=== PATIENT | male | born 1940 | race Caucasian/White ===

== ENCOUNTER → 2023-05-09 14:59 | Outpatient (BNVA) | payer OTHER, SELFPAY | PROVIDERS: PCP Internal Medicine; Visit Provider Internal Medicine ==

== ENCOUNTER 2023-06-22 06:05 | Outpatient (REF) | payer OTHER, SELFPAY ==
--- NOTE | ~2023-06-22 | FL_ITS ---
EXAMINATION: XR FLUOROSCOPY WITH IMAGES CLINICAL INFORMATION: Spondylosis without myelopathy or radiculopathy, lumbar region. COMPARISON: None available. TECHNIQUE: Fluoroscopy Supervised By: Dr. Nj Chaney. Fluoroscopy Time: 0.1 minute. Cumulative Dose: 2.06 mGy. DAP: 0.345 Gy-cm2. Images: 1. FINDINGS: There is a single image of the lumbar spine with needle positioned adjacent to L3-L4, L4-L5 and L5-S1 facet joints with contrast opacifying the soft tissues. On the visualized images, no aggressive lytic or sclerotic process seen. FL/FL guidance in treatment room IMPRESSION: Fluoroscopy guidance was provided to referring physician for pain management.
== END 2023-06-22 06:06 | disposition home or self-care (01) ==
LOC: CF 06:05
PROVIDERS: Visit Provider Internal Medicine
DX: M47.816 Spondylosis without myelopathy or radiculopathy, lumbar region (principal)
CPT/HCPCS: 64493; 64494

== ENCOUNTER 2023-06-22 10:17 | Outpatient (AMB) | payer OTHER, SELFPAY ==
[2023-06-22 10:33] VITALS: BP 130/68; PULSE 65; RESP 16; O2SAT 96; BMI 25.5
--- NOTE | 2023-06-22 10:33 | A.OFFVIS_ITS ---
Intake Vital Signs 06/22/23 10:33 06/22/23 11:03 Height 5 ft 11 in 5 ft 11 in Weight 183 lb 183 lb BMI 25.5 25.5 BP 130/68 138/62 Blood Pressure Location Lt brachial Lt brachial Position Sitting Sitting Respiration 16 16 Pulse 65 56 Pulse Source Pulse Oximeter Pulse Oximeter Pulse Oximetry (%) 96 98 Oxygen Delivery Method Room Air Room Air Comment Pre-op post-op Intake Visit Reasons: Right Dx L3-L4-DR-L5 MBB Allergies No Known Allergies Allergy (Verified 06/22/23 10:33) HPI Right Dx L3-L4-DR-L5 MBB HPI Details Patient presents for scheduled procedure. Denies any recent cough, cold, infection, fever or other significant changes in medical history since last office visit. [facility] Medical History (Updated 05/09/23 @ 16:07 by Nj Chaney MD) BPH (benign prostatic hyperplasia) CAD (coronary artery disease) Cholelithiasis GERD (gastroesophageal reflux disease) Hearing loss Heart murmur History of colonic polyps HTN (hypertension) Hyperlipidemia NITESH (iron deficiency anemia) Microalbuminuria Type II diabetes mellitus with renal manifestations Physical Exam Vital Signs: Last Vital Signs Pulse 56 06/22/23 11:03 Resp 16 06/22/23 11:03 BP 138/62 06/22/23 11:03 Pulse Ox 98 06/22/23 11:03 Oxygen Delivery Method Room Air 06/22/23 11:03 BMI result Body Mass Index 25.5 Office Procedures Lumbar/Sacral Facet Inj Details: Lumbar Medial Branch Block, right L3, L4 medial branches and L5 Dorsal Ramus (2 levels, 3 nerves) After obtaining written consent, pre-procedure blood pressure and pulse were recorded and are in the nursing record for review. The patient was placed in a prone position. The respective lumbosacral area was prepped with chloraprep and draped in sterile fashion. The skin over the target medial branch nerves was anesthetized with 0.5% lidocaine. A 22 gauge 3.5 inch needle was inserted into the target medial branch nerve under fluoroscopic guidance. No paresthesias were elicited with needle placement and aspiration was negative for blood and CSF. Next, 0.2cc of omnipaque 180 was injected to verify positioning. Next 0.5 ml 0.5% ropivicaine was injected (0.5cc total per level). The identical procedure was performed at the remaining levels. The skin was cleansed and a sterile bandage was applied. Following the procedure the patient's vital signs were stable. The patient tolerated the procedure well and no complications were encountered. Following the procedure the patient's vital signs were stable. The patient was discharged home in good condition with post-procedural instructions. Time Out: Immediately prior to the procedure, the following was verbally confirmed that there is a signed consent form and that the correct patient, planned procedure, site and side are consistent with documentation and that necessary equipment and/or blood products are available prior to the start of the case. Complications: none EBL: <5 cc 74871 - second level, with Fluoroscopy Procedure code (CPT) selection complete Assessment & Plan Assessment & Plan (1) Lumbar spondylosis: Code(s): M47.816 - Spondylosis without myelopathy or radiculopathy, lumbar region Plan Patient is status post right L3, L4 medial branches and L5 dorsal ramus d iagnostic nerve block. Patient tolerated procedure well and was discharged home in stable condition with discharge instructions. All questions were answered. We will follow-up via telephone or in clinic to assess response to therapy. A follow-up appointment was made during today's visit. Orders: Orders 2 FL guidance in treatment room Today M47.816 - Spondylosis without myelopathy or radiculopathy, lumbar region Coding Level of Care Code Procedure Only Diagnoses Lumbar spondylosis M47.816 CPT Codes Facet Injection-Lumbar/Sacral - CPT: 67269 - second level, with Fluoroscopy ([id number])
[2023-06-22 11:03] VITALS: BP 138/62; PULSE 56; RESP 16; O2SAT 98; BMI 25.5
== END 2023-06-22 11:00 | disposition home or self-care (01) ==
PROVIDERS: PCP Internal Medicine; Visit Provider Internal Medicine
DX: M47.816 Spondylosis without myelopathy or radiculopathy, lumbar region (principal)
CPT/HCPCS: 64493; 64494

== ENCOUNTER 2023-10-03 14:03 | Outpatient (AMB) | payer OTHER, SELFPAY ==
[2023-10-03 14:08] VITALS: PULSE 64; RESP 12; O2SAT 96; BMI 25.5
--- NOTE | 2023-10-03 14:08 | MHC.OFFVIS ---
Intake Vital Signs 10/03/23 14:08 Height 5 ft 11 in Weight 183 lb BMI 25.5 Blood Pressure Location Lt brachial Position Sitting Respiration 12 Pulse 64 Pulse Source Pulse Oximeter Pulse Oximetry (%) 96 Oxygen Delivery Method Room Air Intake Visit Reasons: post procedure/lvm Allergies No Known Allergies Allergy (Verified 10/03/23 14:09) Medication List - Last Reconciled 10/03/23 by Ping Russ LPN amlodipine 10 mg PO DAILY diclofenac sodium 1% 1 g topical PRN dulaglutide (Trulicity) 0.75 mg subcut QWEEK ferrous sulfate (FeroSul) 325 mg PO DAILY finasteride 5 mg PO DAILY glipizide 10 mg PO BID metformin 1,000 mg PO BID metoprolol succinate ER 50 mg PO DAILY omeprazole 20 mg PO DAILY rosuvastatin 20 mg PO DAILY tamsulosin 0.4 mg PO DAILY tramadol 50 mg PO Q6H PRN HPI post procedure/lvm HPI Details 83-year-old male who presents today to the office for a post procedure check in. The patient reports 80% relief following the procedure for about 3-4 days. He reports back pain. He missed the call to schedule follow-up appointment after last procedure. Past procedure: 06/22/23: Lumbar Medial Branch Block, right L3, L4 medial branches and L5 Dorsal Ramus (2 levels, 3 nerves): 80% relief for 3-4 days. [facility] Medical History (Updated 05/09/23 @ 16:07 by Nj Chaney MD) Hearing loss History of colonic polyps CAD (coronary artery disease) GERD (gastroesophageal reflux disease) HTN (hypertension) BPH (benign prostatic hyperplasia) Hyperlipidemia NITESH (iron deficiency anemia) Type II diabetes mellitus with renal manifestations Cholelithiasis Microalbuminuria Heart murmur Review of Systems Const All systems reviewed & are unremarkable except as noted in HPI and below Physical Exam Vital Signs: Last Vital Signs Pulse 64 10/03/23 14:08 Resp 12 10/03/23 14:08 Pulse Ox 96 10/03/23 14:08 Oxygen Delivery Method Room Air 10/03/23 14:08 BMI result Body Mass Index 25.5 General: Appears afebrile. Alert and oriented. Mood and affect appropriate. Follows and participates in conversation appropriately. Respiratory effort is unlabored. Able to transition from sit to stand unassisted. Ambulates with bilaterally normal heel strike and toe off. Results Reviewed Results Reviewed: No imaging is available for review. Assessment & Plan Assessment & Plan (1) Lumbar spondylosis: Code(s): M47.816 - Spondylosis without myelopathy or radiculopathy, lumbar region Plan Will schedule him for a repeat right L3-L4 medial branch, L5 dorsal ramus, diagnostic medial branch blocks. Discussed the risks and benefits of the procedure with the patient in detail. All questions were answered. The patient is on board with the plan. If patient has similar good response to test injection, we will schedule him for RFA procedure as discussed. Justification for interventional therapy: ? Patient with average pain > 6/10 ? Patient has exhausted conservative therapy ? Patient already engaged in a home exercise program Scribed for Dr. Chaney by Sylvester Quintana, medical reimbursement manager, on 10/03/2023. I, Dr. Chaney, have personally reviewed and agree with the information entered by the scribe. Coding Level of Care Code Est Pt Level 3 (51515) Diagnoses Lumbar spondylosis M47.816
== END 2023-10-03 14:13 | disposition home or self-care (01) ==
PROVIDERS: PCP Internal Medicine; Visit Provider Internal Medicine
DX: M47.816 Spondylosis without myelopathy or radiculopathy, lumbar region (principal)
CPT/HCPCS: 99213

== ENCOUNTER → 2023-10-03 14:03 | Outpatient (BNVA) | payer OTHER, SELFPAY | PROVIDERS: PCP Internal Medicine; Visit Provider Internal Medicine ==

== ENCOUNTER 2023-11-23 05:43 | Outpatient (REF) | payer OTHER, SELFPAY ==
--- NOTE | ~2023-11-23 | FL_ITS ---
CLINICAL INDICATION: Back pain. FINDINGS: Technical assistance and equipment were provided by the Department of Radiology during intraoperative fluoroscopy for percutaneous injection. 1, limited fluoroscopic spot image is submitted. A radiologist was not present during the procedure. The image demonstrates the tips of percutaneous needles to project just lateral to the right pedicles of the lower lumbar spine. Contrast is injected. Surgical clips are incidentally visualized. The image is available for review on PACS. TOTAL FLUOROSCOPY TIME: 0.1 minute. DOSE AREA PRODUCT: 0.04 mGy-m2 (milligray-meter squared) FL/FL guidance in treatment room IMPRESSION: Technical assistance and equipment provided by the Department of Radiology during intraoperative fluoroscopy, as above. Please see operative report for further details.
== END 2023-11-23 05:44 | disposition home or self-care (01) ==
LOC: CF 05:43
PROVIDERS: Visit Provider Internal Medicine
DX: M47.816 Spondylosis without myelopathy or radiculopathy, lumbar region (principal)
CPT/HCPCS: 64493; 64494; J2795; Q9967

== ENCOUNTER 2023-11-23 08:12 | Outpatient (AMB) | payer OTHER, SELFPAY ==
[2023-11-23 08:20] VITALS: BP 112/52; PULSE 63; RESP 12; O2SAT 96
--- NOTE | 2023-11-23 08:20 | A.OFFVIS_ITS ---
Intake Vital Signs 11/23/23 08:20 11/23/23 08:49 BP 112/52 L 120/64 Blood Pressure Location Lt brachial Lt brachial Position Sitting Sitting Respiration 12 12 Pulse 63 68 Pulse Source Pulse Oximeter Pulse Oximeter Pulse Oximetry (%) 96 96 Oxygen Delivery Method Room Air Room Air Intake Visit Reasons: Right L3-L4-DR-L5 MBB Allergies No Known Allergies Allergy (Verified 11/23/23 08:20) HPI Right L3-L4-DR-L5 MBB HPI Details Patient presents for scheduled procedure. Denies any recent cough, cold, infection, fever or other significant changes in medical history since last office visit. [facility] Medical History (Updated 05/09/23 @ 16:07 by Nj Chaney MD) Hearing loss History of colonic polyps CAD (coronary artery disease) GERD (gastroesophageal reflux disease) HTN (hypertension) BPH (benign prostatic hyperplasia) Hyperlipidemia NITESH (iron deficiency anemia) Type II diabetes mellitus with renal manifestations Cholelithiasis Microalbuminuria Heart murmur Physical Exam Vital Signs: Last Vital Signs Pulse 68 11/23/23 08:49 Resp 12 11/23/23 08:49 BP 120/64 11/23/23 08:49 Pulse Ox 96 11/23/23 08:49 Oxygen Delivery Method Room Air 11/23/23 08:49 Office Procedures Lumbar/Sacral Facet Inj Details: Lumbar Medial Branch Block, Right L3, L4 medial branches and L5 Dorsal Ramus (2 levels, 3 nerves) After obtaining written consent, pre-procedure blood pressure and pulse were recorded and are in the nursing record for review. The patient was placed in a prone position. The respective lumbosacral area was prepped with chloraprep and draped in sterile fashion. The skin over the target medial branch nerves was anesthetized with 0.5% lidocaine. A 22 gauge 3.5 inch needle was inserted into the target medial branch nerve under fluoroscopic guidance. No paresthesias were elicited with needle placement and aspiration was negative for blood and CSF. Next, 0.2cc of omnipaque 180 was injected to verify positioning. Next 0.5 ml 0.5% ropivicaine was injected (0.5cc total per level). The identical procedure was performed at the remaining levels. The skin was cleansed and a sterile bandage was applied. Following the procedure the patient's vital signs were stable. The patient tolerated the procedure well and no complications were encountered. Following the procedure the patient's vital signs were stable. The patient was discharged home in good condition with post-procedural instructions. Time Out: Immediately prior to the procedure, the following was verbally confirmed that there is a signed consent form and that the correct patient, planned procedure, site and side are consistent with documentation and that necessary equipment and/or blood products are available prior to the start of the case. Complications: none EBL: <5 cc 33159 - second level, with Fluoroscopy Procedure code (CPT) selection complete Assessment & Plan Assessment & Plan (1) Lumbar spondylosis: Code(s): M47.816 - Spondylosis without myelopathy or radiculopathy, lumbar region Plan Patient is status post right diagnostic L3, L4 MB, L5 DR blocks. Patient t olerated procedure well and was discharged home in stable condition with discharge instructions. All questions were answered. We will follow-up via telephone or in clinic to assess response to therapy. A follow-up appointment was made during today's visit. Orders: Orders FL guidance in treatment room Today M47.816 - Spondylosis without myelopathy or radiculopathy, lumbar region Coding Level of Care Code Procedure Only Diagnoses Lumbar spondylosis M47.816 CPT Codes Facet Injection-Lumbar/Sacral - CPT: 79590 - second level, with Fluoroscopy ([id number])
[2023-11-23 08:49] VITALS: BP 120/64; PULSE 68; RESP 12; O2SAT 96
== END 2023-11-23 08:49 | disposition home or self-care (01) ==
LOC: HO.PMCPRC 08:12
PROVIDERS: PCP Internal Medicine; Visit Provider Internal Medicine
DX: M47.816 Spondylosis without myelopathy or radiculopathy, lumbar region (principal)
CPT/HCPCS: 64493; 64494

== ENCOUNTER 2023-11-25 11:31 | Outpatient (AMB) | payer OTHER, SELFPAY ==
--- NOTE | 2023-11-25 11:35 | A.OFFVIS_ITS ---
Intake Vital Signs 11/25/23 11:37 Height 5 ft 11 in Weight 183 lb BMI 25.5 BP 128/60 Blood Pressure Location Lt brachial Position Sitting Respiration 12 Pulse 60 Pulse Source Pulse Oximeter Intake Visit Reasons: s/p right L3-L4-DR-L5 MBB Allergies No Known Allergies Allergy (Verified 11/25/23 11:38) Medication List - Last Reconciled 11/25/23 by Ping Russ LPN amlodipine 10 mg PO DAILY diclofenac sodium 1% 1 g topical PRN dulaglutide (Trulicity) 0.75 mg subcut QWEEK ferrous sulfate (FeroSul) 325 mg PO DAILY finasteride 5 mg PO DAILY glipizide 10 mg PO BID metformin 1,000 mg PO BID metoprolol succinate ER 50 mg PO DAILY omeprazole 20 mg PO DAILY rosuvastatin 20 mg PO DAILY tamsulosin 0.4 mg PO DAILY tramadol 50 mg PO Q6H PRN HPI s/p right L3-L4-DR-L5 MBB HPI Details 83-year-old male who presents today to t he office for a status post right L3-L4-DR-L5 MBB. The patient reports 80-90% relief following the procedure, that is now starting to return. He is amenable to proceed with RFA procedure for longer-term pain relief. Past procedures: 11/23/23: Lumbar Medial Branch Block, Rig ht L3, L4 medial branches and L5 Dorsal Ramus (2 levels, 3 nerves): 80% relief for 2-3 days. 06/22/23: Lumbar Medial Branch Block, ri ght L3, L4 medial branches and L5 Dorsal Ramus (2 levels, 3 nerves): 80% relief for 3-4 days. COUNT INCLUDES [facility] Medical History (Updated 05/09/23 @ 16:07 by Nj Chaney MD) Hearing loss History of colonic polyps CAD (coronary artery disease) GERD (gastroesophageal reflux disease) HTN (hypertension) BPH (benign prostatic hyperplasia) Hyperlipidemia NITESH (iron deficiency anemia) Type II diabetes mellitus with renal manifestations Cholelithiasis Microalbuminuria Heart murmur Review of Systems Const All systems reviewed & are unremarkable except as noted in HPI and below Physical Exam Vital Signs: Last Vital Signs Pulse 60 11/25/23 11:37 Resp 12 11/25/23 11:37 BP 128/60 11/25/23 11:37 BMI result Body Mass Index 25.5 General: Appears afebrile. Alert and oriented. Mood and affect appropriate. Follows and participates in conversation appropriately. Respiratory effort is unlabored. Able to transition from sit to stand unassisted. Ambulates with bilaterally normal heel strike and toe off. Results Reviewed Results Reviewed: No imaging is available for review. Assessment & Plan Assessment & Plan (1) Lumbar spondylosis: Code(s): M47.816 - Spondylosis without myelopathy or radiculopathy, lumbar region Plan Will schedule him for right L3, L4 medial branches, L5 dorsal ramus RFA. Discussed the risks and benefits of the procedure with the patient in detail. All questions were answered. The patient is on board with the plan. Justification for interventional therapy: ? Patient with average pain > 6/10 ? Patient has exhausted conservative therapy ? 2 rounds of diagnostic injections provided 80% relief for the anesthetic phase Scribed for Dr. Chaney by Sylvester Quintana, electromedical equipment technician, on 11/25/2023. I, Dr. hCaney, have personally reviewed and agree with the information entered by the scribe. Coding Level of Care Code Est Pt Level 3 (64324) Diagnoses Lumbar spondylosis M47.816
[2023-11-25 11:37] VITALS: BP 128/60; PULSE 60; RESP 12; BMI 25.5
== END 2023-11-25 12:09 | disposition home or self-care (01) ==
PROVIDERS: PCP Internal Medicine; Visit Provider Internal Medicine
DX: M47.816 Spondylosis without myelopathy or radiculopathy, lumbar region (principal)
CPT/HCPCS: 99213

== ENCOUNTER → 2023-11-25 11:31 | Outpatient (BNVA) | payer OTHER, SELFPAY | PROVIDERS: PCP Internal Medicine; Visit Provider Internal Medicine ==

== ENCOUNTER 2023-12-29 06:06 | Outpatient (REF) | payer OTHER, SELFPAY ==
--- NOTE | ~2023-12-29 | FL_ITS ---
EXAMINATION: XR FLUOROSCOPY WITH IMAGES CLINICAL INFORMATION: Spondylosis without myelopathy or radiculopathy. COMPARISON: None available. TECHNIQUE: Fluoroscopy Supervised By: Lenore Hester. Fluoroscopy Time: 0.4 minutes. Cumulative Dose: 6.42 mGy. DAP: 0.0647 Gycm2. Images: 2. FINDINGS: There are 2 digital images obtained revealing needle positioned lateral to the right lateral L3, L4-L5 pedicles for pain management. No gross bony abnormality seen on this limited images. FL/FL guidance in treatment room IMPRESSION: Fluoroscopy was provided to referrer for pain management.
== END 2023-12-29 06:07 | disposition home or self-care (01) ==
LOC: CF 06:06
PROVIDERS: Visit Provider Internal Medicine
DX: M47.816 Spondylosis without myelopathy or radiculopathy, lumbar region (principal)
CPT/HCPCS: 64635; 64636; J2795

== ENCOUNTER 2023-12-29 13:23 | Outpatient (AMB) | payer OTHER, SELFPAY ==
[2023-12-29 13:30] VITALS: BP 128/60; PULSE 65; RESP 14; O2SAT 95; BMI 25.8
--- NOTE | 2023-12-29 13:30 | MHC.OFFVIS ---
Intake Vital Signs 12/29/23 13:30 12/29/23 14:20 Height 5 ft 11 in 5 ft 11 in Weight 185 lb 185 lb BMI 25.8 25.8 BP 128/60 140/60 H Blood Pressure Location Lt brachial Lt brachial Position Sitting Sitting Respiration 14 14 Pulse 65 70 Pulse Source Pulse Oximeter Pulse Oximeter Pulse Oximetry (%) 95 95 Oxygen Delivery Method Room Air Room Air Comment Pre-Op Post-Op Intake Visit Reasons: Right L3-L4-DR-L5 RFA Allergies No Known Allergies Allergy (Verified 12/29/23 13:31) HPI Right L3-L4-DR-L5 RFA HPI Details Patient presents for scheduled procedure. Denies any recent cough, cold, infection, fever or other significant changes in medical history since last office visit. [facility] Medical History (Updated 05/09/23 @ 16:07 by Nj Chaney MD) Hearing loss History of colonic polyps CAD (coronary artery disease) GERD (gastroesophageal reflux disease) HTN (hypertension) BPH (benign prostatic hyperplasia) Hyperlipidemia NITESH (iron deficiency anemia) Type II diabetes mellitus with renal manifestations Cholelithiasis Microalbuminuria Heart murmur Physical Exam Vital Signs: Last Vital Signs Pulse 70 12/29/23 14:20 Resp 14 12/29/23 14:20 BP 140/60 H 12/29/23 14:20 Pulse Ox 95 12/29/23 14:20 Oxygen Delivery Method Room Air 12/29/23 14:20 BMI result Body Mass Index 25.8 Office Procedures Details: Radiofrequency lesioning medial branch nerves, right L3, L4 medial branches and L5 dorsal ramus (L4/5 and L5/S1) (2 levels, 3 nerves) After obtaining written consent, pre-procedure blood pressure and heart rate were stable and recorded in the nursing record. The patient was placed in the prone position. The lumbar area was prepped with chloraprep and draped in sterile fashion. The skin over the target for each medial branch nerve was anesthetized with 0.5% lidocaine. An 18 gauge radiofrequency cannula was advanced to each target site under fluoroscopic guidance. No paresthesias were elicited with needle placement and aspiration was negative for heme and CSF. Impedences were verified under 600 ohms. Sensory testing (50 Hz) and then motor testing (2 Hz) confirmed needle placement at each site within the appropriate voltage thresholds. Each site was injected with 0.5 ml 2% preservative-free lidocaine. Radiofrequency lesioning was performed for 90 seconds at 80 deg Celcius. Each site was then injected with 0.5ml 0.5% ropivacaine. The needle was removed, skin cleansed and a sterile bandage was applied. The patient tolerated the procedure well and no complications were encountered. Following the procedure the patient's vital signs were stable. The patient was discharged home in good condition with post-procedural instructions. Time Out: Immediately prior to the procedure, the following was verbally confirmed that there is a signed consent form and that the correct patient, planned procedure, site and side are consistent with documentation and that necessary equipment and/or blood products are available prior to the start of the case. Complications: none EBL: <5 cc Grounding pad lot # [id number] Exp: 2025-01-18 21566 - RFA Lumbar Medial Branches 76951 - Lumbar Medial Branches ADDNL Procedure code (CPT) selection complete Office Meds lidocaine (PF) 50 mg/5 mL (1 %) injection syringe Performing Provider: Kacie Jasso APRN, CNP Performing Location: [facility] Administered by: Nj Chaney MD on 12/29/23 14:50 Dose Route Admin Location Dispensed Lot Number Expiration Date [facility] Business [employer] Manager 5 mL Infiltration 5 mL ropivacaine (PF) 5 mg/mL (0.5 %) injection solution Performing Provider: Kacie Jasso APRN, CNP Performing Location: [facility] Administered by: Nj Chaney MD on 12/29/23 14:50 Dose Route Admin Location Dispensed Lot Number Expiration Date [facility] [employer] Manager 5 mg Infiltration 1.5 mL Assessment & Plan Assessment & Plan (1) Lumbar spondylosis: Code(s): M47.816 - Spondylosis without myelopathy or radiculopathy, lumbar region Plan Patient is status post right L3, L4 medial branches and L5 dorsal ramus radiofrequency lesioning. Patient tolerated procedure well and was discharged home in stable condition with discharge instructions. All questions were answered. We will follow-up via telephone or in clinic to assess response to therapy. A follow-up appointment was made during today's visit. Orders: Orders FL guidance in treatment room Today M47.816 - Spondylosis without myelopathy or radiculopathy, lumbar region AMB RFA Radiofrequency Ablation Pain Management Today M47.816 - Spondylosis without myelopathy or radiculopathy, lumbar region Coding Level of Care Code Procedure Only Diagnoses Lumbar spondylosis M47.816 CPT Codes Radiofrequency Ablation - Rad-Ablation 3: 00271 - RFA Lumbar Medial Branches ([id number]) Radiofrequency Ablation - Rad-Ablation 4: 04808 - Lumbar Medial Branches ADDNL ([id number])
[2023-12-29 14:20] VITALS: BP 140/60; PULSE 70; RESP 14; O2SAT 95; BMI 25.8
== END 2023-12-29 14:07 | disposition home or self-care (01) ==
LOC: HO.PMCPRC 13:23
PROVIDERS: PCP Internal Medicine; Visit Provider Internal Medicine
DX: M47.816 Spondylosis without myelopathy or radiculopathy, lumbar region (principal)
CPT/HCPCS: 64635; 64636

== ENCOUNTER 2024-01-27 10:09 | Outpatient (AMB) | payer OTHER, SELFPAY ==
--- NOTE | 2024-01-27 10:11 | A.OFFVIS_ITS ---
Intake Vital Signs 01/27/24 10:12 Height 5 ft 11 in Weight 185 lb BMI 25.8 BP 137/65 Blood Pressure Location Lt brachial Position Sitting Respiration 12 Pulse 60 Pulse Source Pulse Oximeter Pulse Oximetry (%) 99 Oxygen Delivery Method Room Air Intake Visit Reasons: s/p Right L3-L4-DR-L5 RFA Allergies No Known Allergies Allergy (Verified 01/27/24 10:13) Medication List - Last Reconciled 01/27/24 by Ping Russ LPN amlodipine 10 mg PO DAILY diclofenac sodium 1% 1 g topical PRN dulaglutide (Trulicity) 0.75 mg subcut QWEEK ferrous sulfate (FeroSul) 325 mg PO DAILY finasteride 5 mg PO DAILY glipizide 10 mg PO BID metformin 1,000 mg PO BID metoprolol succinate ER 50 mg PO DAILY omeprazole 20 mg PO DAILY rosuvastatin 20 mg PO DAILY tamsulosin 0.4 mg PO DAILY tramadol 50 mg PO Q6H PRN HPI s/p Right L3-L4-DR-L5 RFA HPI Details 84-year-old male who presents today to t he office for a status post right L3-L4-DR-L5 RFA. The patient reports no relief following the procedure. He has not noticed any changes in his pain post procedure. He reports pinching sensations in his back. It is worse when sitting or walking. He wants to discuss other options today. Past Procedures: 12/29/23: Radiofrequency lesioning media l branch nerves, right L3, L4 medial branches and L5 dorsal ramus (L4/5 and L5/S1) (2 levels, 3 nerves): No relief 11/23/23: Lumbar Medial Branch Block, Rig ht L3, L4 medial branches and L5 Dorsal Ramus (2 levels, 3 nerves): 80% relief for 2-3 days. 06/22/23: Lumbar Medial Branch Block, ri ght L3, L4 medial branches and L5 Dorsal Ramus (2 levels, 3 nerves): 80% relief for 3-4 days. [facility] Medical History (Updated 05/09/23 @ 16:07 by Nj Chaney MD) Hearing loss History of colonic polyps CAD (coronary artery disease) GERD (gastroesophageal reflux disease) HTN (hypertension) BPH (benign prostatic hyperplasia) Hyperlipidemia NITESH (iron deficiency anemia) Type II diabetes mellitus with renal manifestations Cholelithiasis Microalbuminuria Heart murmur Review of Systems Const All systems reviewed & are unremarkable except as noted in HPI and below Physical Exam Vital Signs: Last Vital Signs Pulse 60 01/27/24 10:12 Resp 12 01/27/24 10:12 BP 137/65 01/27/24 10:12 Pulse Ox 99 01/27/24 10:12 Oxygen Delivery Method Room Air 01/27/24 10:12 BMI result Body Mass Index 25.8 General: Appears afebrile. Alert and oriented. Mood and affect appropriate. Follows and participates in conversation appropriately. Respiratory effort is unlabored. Able to transition from sit to stand unassisted. Ambulates with bilaterally normal heel strike and toe off. Results Reviewed Results Reviewed: No imaging is available for review. Assessment & Plan Assessment & Plan (1) Lumbar spondylosis: Code(s): M47.816 - Spondylosis without myelopathy or radiculopathy, lumbar region Plan Discussed trigger point injections vs. surgical intervention vs. temporary nerve stimulator as possible treatment options. I discussed a trial of peripheral nerve stimulation for axial facet mediated low back pain on the right side. Since the radiofrequency ablation did not provide him with the intended relief, he continues to suffer from intractable back pain that interferes with his daily activities. We will submit a prior authorization request to his insurance for the right L3 medial branch nerve stimulation trial with a Sprint device, and I have provided a device brochure to the patient today. Discussed the risks and benefits of the procedure with the patient in detail. All questions were answered. The patient is on board with the plan. Justification for interventional therapy: ? Patient with average pain > 6/10 ? Patient has exhausted conservative therapy ? Radiofrequency ablation did not provide relief for facet mediated pain Scribed for Dr. Chaney by Sylvester Quintana, rn medical inpatient services, on 01/27/2024. I, Dr. Chaney, have personally reviewed and agree with the information entered by the scribe. Coding Level of Care Code Est Pt Level 4 (65825) Diagnoses Lumbar spondylosis M47.816
[2024-01-27 10:12] VITALS: BP 137/65; PULSE 60; RESP 12; O2SAT 99; BMI 25.8
== END 2024-01-27 10:33 | disposition home or self-care (01) ==
PROVIDERS: PCP Internal Medicine; Visit Provider Internal Medicine
DX: M47.816 Spondylosis without myelopathy or radiculopathy, lumbar region (principal)
CPT/HCPCS: 99214

== ENCOUNTER → 2024-01-27 10:09 | Outpatient (BNVA) | payer OTHER, SELFPAY | PROVIDERS: PCP Internal Medicine; Visit Provider Internal Medicine ==

== ENCOUNTER 2024-03-22 06:25 | Outpatient (REF) | payer OTHER, SELFPAY ==
--- NOTE | ~2024-03-22 | FL_ITS ---
EXAMINATION: XR FLUOROSCOPY WITH IMAGES CLINICAL INFORMATION: Spondylosis. COMPARISON: None available. TECHNIQUE: Fluoroscopy Supervised By: Dr. Chaney. Fluoroscopy Time: 0.2 min. Cumulative Dose: 5.14 mGy. DAP: 0.0411 Gycm2. Images: 3. FINDINGS: Intraoperative fluoroscopy and spot films were performed during a procedure in the OR. Imaging demonstrates a needle along with metallic devices overlying the spine. The level cannot be ascertained from the included radiographs. Please see Dr. Chaney' report for complete details. FL/FL guidance in treatment room IMPRESSION: Intraoperative fluoroscopy and spot films were obtained. Please see Dr. Chaney' report for complete details.
== END 2024-03-22 06:26 | disposition home or self-care (01) ==
LOC: CF 06:25
PROVIDERS: Visit Provider Internal Medicine
DX: G58.9 Mononeuropathy, unspecified (principal); M47.816 Spondylosis without myelopathy or radiculopathy, lumbar region; M54.9 Dorsalgia, unspecified
CPT/HCPCS: 64555; C1778

== ENCOUNTER 2024-03-22 12:58 | Outpatient (AMB) | payer OTHER, SELFPAY ==
--- NOTE | 2024-03-22 13:03 | A.OFFVIS_ITS ---
Vital Signs 03/22/24 14:07 03/22/24 14:12 Height 5 ft 11 in Weight 185 lb BMI 25.8 BP 128/58 L 124/62 Blood Pressure Location Lt brachial Lt brachial Position Sitting Sitting Respiration 16 18 Pulse 62 66 Pulse Source Pulse Oximeter Pulse Oximeter Pulse Oximetry (%) 97 96 Oxygen Delivery Method Room Air Room Air Comment Pre-Op Intake Visit Reasons: Right L3 Sprint Allergies No Known Allergies Allergy (Verified 01/27/24 10:13) HPI HPI Right L3 Sprint: Details: Patient presents for scheduled procedure. Denies any recent cough, cold, infection, fever or other significant changes in medical history since last office visit. [facility] Medical History (Updated 03/22/24 @ 14:37 by Nj Chaney MD) Hearing loss History of colonic polyps CAD (coronary artery disease) GERD (gastroesophageal reflux disease) HTN (hypertension) BPH (benign prostatic hyperplasia) Hyperlipidemia NITESH (iron deficiency anemia) Type II diabetes mellitus with renal manifestations Cholelithiasis Microalbuminuria Heart murmur Physical Exam Vital Signs: Last Vital Signs Pulse 66 03/22/24 14:12 Resp 18 03/22/24 14:12 BP 124/62 03/22/24 14:12 Pulse Ox 96 03/22/24 14:12 Oxygen Delivery Method Room Air 03/22/24 14:12 BMI result Body Mass Index 25.8 Office Procedures Details: Lumbar Medial Branch Nerve Stimulation Lead Placement, SPR (Sprint) System, Right L3 ? After the risks, benefits and alternatives were discussed with the patient and informed consent was obtained, patient was placed in the prone position and padded to foster comfort. The skin overlying the lumbosacral spine was prepped and draped in sterile fashion. Fluoroscopy was used to identify the spinous process and lamina in the center of the patient?s region of pain. After identifying and marking the intended target along the course of the medial branch nerve, the skin around the planned entry point and the subcutaneous tissues were injected with lidocaine 1%. An introducer needle and stimulating probe were assembled, inserted and advanced along the intended course of the medial branch nerve as it traverses the lamina medial and inferior to the zygapophyseal joint, taking care to maintain the proper depth of insertion as the introducer is advanced under fluoroscopic guidance. The introducer needle was delivered to a location in proximity to the nerve. Multiple stimulation parameters were used to deliver stimulation to the target medial branch nerve in concert with stimulating at multiple positions around the nerve. Nerve target acquisition was confirmed noting generation of paresthesias in the paravertebral regions corresponding to the level being stimulated. Various electrical parameter combinations were tested, and the lead location was adjusted (physically relocated) until the patient indicated paresthesia/muscle tension overlapping the distribution of the patient?s typical region of pain. The stimulating probe was removed from the introducer and a percutaneous lead was guided through the needle and delivered to a location in similar proximity to the nerve. Final location was verified with electrical stimulation and documented with fluoroscopy. The introducer needle was removed, and the exposed end of the percutaneous lead was attached to an external stimulator unit. Various electrical parameter combinations were again tested until the patient indicated paresthesia or muscle tension overlapping the distribution of the patient?s typical region of pain. After confirming that lead impedance was in the normal range, the external unit was detached, the needle was removed, and the lead was anchored at the skin. The lead was threaded into the connector block and electrical continuity and desired patient response was confirmed. The connector block was attached to the external stimulator unit. The site was covered with a sterile occlusive dressing. The patient was observed for stability of vital signs and comfort. Sprint PNS Device: Sprint PNS Device [id number] Percutaneous Peripheral Neuroelectrode Procedure: 68851 - Percutaneous Peripheral Neuroelectrode Procedure code (CPT) selection complete Office Meds lidocaine (PF) 50 mg/5 mL (1 %) injection syringe Performing Provider: Kacie Jasso APRN, CNP Performing Location: [facility] Administered by: Ping Russ LPN on 03/22/24 13:36 Dose Route Admin Location Dispensed Lot Number Expiration Date NDC Artifacts Conservator 5 mL subcut 5 mL Assessment & Plan Assessment & Plan (1) Lumbar spondylosis: Code(s): M47.816 - Spondylosis without myelopathy or radiculopathy, lumbar region Category: Medical (2) Intractable back pain: Code(s): M54.9 - Dorsalgia, unspecified Category: Medical Plan Patient is status post temporary right L3 medial branch nerve stimulator placement. Patient tolerated procedure well and was discharged home in stable condition with discharge instructions. All questions were answered. We will follow-up via telephone or in clinic to assess response to therapy. A follow-up appointment was made during today's visit. Orders: Orders FL guidance in treatment room Today M47.816 - Spondylosis without myelopathy or radiculopathy, lumbar region AMB Sprint PNS Today M47.816 - Spondylosis without myelopathy or radiculopathy, lumbar region Coding Level of Care Code Procedure Only Diagnoses Lumbar spondylosis M47.816 Intractable back pain M54.9 CPT Codes Sprint PNS - Sprint PNS Device: Sprint PNS Device ([id number]) Sprint PNS - SPRINT: 49696 - Percutaneous Peripheral Neuroelectrode ([id number]) Implantable Device Implantable Device Implantable Devices Qty Artifacts Conservator Implant Date Expiration Date Analgesic PENS system 1 [employer] 03/22/24 05/18/25
[2024-03-22 14:07] VITALS: BP 128/58; PULSE 62; RESP 16; O2SAT 97; BMI 25.8
[2024-03-22 14:12] VITALS: BP 124/62; PULSE 66; RESP 18; O2SAT 96
== END 2024-03-22 14:06 | disposition home or self-care (01) ==
LOC: HO.PMCPRC 12:58
PROVIDERS: PCP Internal Medicine; Visit Provider Internal Medicine
DX: M47.816 Spondylosis without myelopathy or radiculopathy, lumbar region (principal); M54.9 Dorsalgia, unspecified
CPT/HCPCS: 64555

== ENCOUNTER 2024-03-26 10:55 | Outpatient (AMB) | payer OTHER, SELFPAY ==
--- NOTE | 2024-03-26 11:01 | MHC.OFFVIS ---
Vital Signs 03/26/24 11:02 Height 5 ft 11 in Weight 194 lb BMI 27.1 BP 139/65 Blood Pressure Location Lt brachial Position Sitting Respiration 14 Pulse 71 Pulse Source Pulse Oximeter Pulse Oximetry (%) 93 Oxygen Delivery Method Room Air Intake Visit Reasons: s/p right L3 Sprint Allergies No Known Allergies Allergy (Verified 03/26/24 11:04) Medication List - Last Reconciled 03/26/24 by Ping Russ LPN amlodipine 10 mg PO DAILY diclofenac sodium 1% 1 g topical PRN dulaglutide (Trulicity) 0.75 mg subcut QWEEK ferrous sulfate (FeroSul) 325 mg PO DAILY finasteride 5 mg PO DAILY glipizide 10 mg PO BID metformin 1,000 mg PO BID metoprolol succinate ER 50 mg PO DAILY omeprazole 20 mg PO DAILY rosuvastatin 20 mg PO DAILY tamsulosin 0.4 mg PO DAILY tramadol 50 mg PO Q6H PRN HPI HPI s/p right L3 Sprint: Details: 84-year-old male who presents today to the office for a status post right L3 sprint. The patient reports 90% relief following the procedure. He has been feeling pulsating sensations from the device, which is not bothersome. His device intensity is 90. He is able to do his ADLs. Past procedures 03/22/24: Lumbar Medial Branch Nerve Stimulation Lead Placement, SPR (Sprint) System, Right L3: 90% relief. 12/29/23: Radiofrequency lesioning medial branch nerves, right L3, L4 medial branches and L5 dorsal ramus (L4/5 and L5/S1) (2 levels, 3 nerves): No relief 11/23/23: Lumbar Medial Branch Block, Right L3, L4 medial branches and L5 Dorsal Ramus (2 levels, 3 nerves): 80% relief for 2-3 days. 06/22/23: Lumbar Medial Branch Block, right L3, L4 medial branches and L5 Dorsal Ramus (2 levels, 3 nerves): 80% relief for 3-4 days. [facility] Medical History (Updated 03/22/24 @ 14:37 by Nj Chaney MD) Hearing loss History of colonic polyps CAD (coronary artery disease) GERD (gastroesophageal reflux disease) HTN (hypertension) BPH (benign prostatic hyperplasia) Hyperlipidemia NITESH (iron deficiency anemia) Type II diabetes mellitus with renal manifestations Cholelithiasis Microalbuminuria Heart murmur Review of Systems Const All systems reviewed & are unremarkable except as noted in HPI and below Physical Exam Vital Signs: Last Vital Signs Pulse 71 03/26/24 11:02 Resp 14 03/26/24 11:02 BP 139/65 03/26/24 11:02 Pulse Ox 93 03/26/24 11:02 Oxygen Delivery Method Room Air 03/26/24 11:02 BMI result Body Mass Index 27.1 General: Appears afebrile. Alert and oriented. Mood and affect appropriate. Follows and participates in conversation appropriately. Respiratory effort is unlabored. Able to transition from sit to stand unassisted. Ambulates with bilaterally normal heel strike and toe off. Lead insertion site is clean dry and intact. Results Reviewed Results Reviewed: No imaging is available for review. Assessment & Plan Assessment & Plan (1) Intractable back pain: Code(s): M54.9 - Dorsalgia, unspecified Category: Medical (2) Lumbar spondylosis: Code(s): M47.816 - Spondylosis without myelopathy or radiculopathy, lumbar region Category: Medical Plan The patient will continue using stimulation therapy for next seven weeks. The patient will follow up for removal of the sprint device. Scribed for Dr. Chaney by Sylvester Quintana, medical claims representative, on 03/26/2024. I, Dr. Chaney, have personally reviewed and agree with the information entered by the scribe. Coding Level of Care Code Est Pt Level 3 (05206) Diagnoses Intractable back pain M54.9 Lumbar spondylosis M47.816
[2024-03-26 11:02] VITALS: BP 139/65; PULSE 71; RESP 14; O2SAT 93; BMI 27.1
== END 2024-03-26 11:38 | disposition home or self-care (01) ==
PROVIDERS: PCP Internal Medicine; Visit Provider Internal Medicine
DX: M54.9 Dorsalgia, unspecified (principal); M47.816 Spondylosis without myelopathy or radiculopathy, lumbar region
CPT/HCPCS: 99024

== ENCOUNTER → 2024-03-26 10:55 | Outpatient (BNVA) | payer OTHER, SELFPAY | PROVIDERS: PCP Internal Medicine; Visit Provider Internal Medicine ==

== ENCOUNTER 2024-05-18 11:49 | Outpatient (AMB) | payer OTHER, SELFPAY ==
--- NOTE | 2024-05-18 11:51 | A.OFFVIS_ITS ---
Vital Signs 05/18/24 11:53 Height 5 ft 11 in Weight 192 lb BMI 26.8 BP 169/71 H Blood Pressure Location Lt brachial Position Sitting Respiration 14 Pulse 61 Pulse Source Pulse Oximeter Pulse Oximetry (%) 95 Oxygen Delivery Method Room Air Intake Visit Reasons: Sprint removal Allergies No Known Allergies Allergy (Verified 05/18/24 11:54) Medication List - Last Reconciled 05/18/24 by Ping Russ LPN amlodipine 10 mg PO DAILY diclofenac sodium 1% 1 g topical PRN dulaglutide (Trulicity) 0.75 mg subcut QWEEK ferrous sulfate (FeroSul) 325 mg PO DAILY finasteride 5 mg PO DAILY glipizide 10 mg PO BID metformin 1,000 mg PO BID metoprolol succinate ER 50 mg PO DAILY omeprazole 20 mg PO DAILY rosuvastatin 20 mg PO DAILY tamsulosin 0.4 mg PO DAILY tramadol 50 mg PO Q6H PRN HPI HPI Sprint removal: Details: 84-year-old male who presents today to the office for a sprint removal. The patient reports 90% relief following the procedure. He has ongoing good pain relief. He has been taking Tylenol for pain. Past procedures 03/22/24: Lumbar Medial Branch Nerve Stimulation Lead Placement, SPR (Sprint) System, Right L3: 90% relief. 12/29/23: Radiofrequency lesioning medial branch nerves, right L3, L4 medial branches and L5 dorsal ramus (L4/5 and L5/S1) (2 levels, 3 nerves): No relief 11/23/23: Lumbar Medial Branch Block, Right L3, L4 medial branches and L5 Dorsal Ramus (2 levels, 3 nerves): 80% relief for 2-3 days. 06/22/23: Lumbar Medial Branch Block, right L3, L4 medial branches and L5 Dorsal Ramus (2 levels, 3 nerves): 80% relief for 3-4 days. [facility] Medical History (Updated 03/22/24 @ 14:37 by Nj Chaney MD) Hearing loss History of colonic polyps CAD (coronary artery disease) GERD (gastroesophageal reflux disease) HTN (hypertension) BPH (benign prostatic hyperplasia) Hyperlipidemia NITESH (iron deficiency anemia) Type II diabetes mellitus with renal manifestations Cholelithiasis Microalbuminuria Heart murmur Review of Systems Const All systems reviewed & are unremarkable except as noted in HPI and below Physical Exam Vital Signs: Last Vital Signs Pulse 61 05/18/24 11:53 Resp 14 05/18/24 11:53 BP 169/71 H 05/18/24 11:53 Pulse Ox 95 05/18/24 11:53 Oxygen Delivery Method Room Air 05/18/24 11:53 BMI result Body Mass Index 26.8 General: Appears afebrile. Alert and oriented. Mood and affect appropriate. Follows and participates in conversation appropriately. Respiratory effort is unlabored. Able to transition from sit to stand unassisted. Ambulates with bilaterally normal heel strike and toe off. Lead insertion site is clean, dry and intact Results Reviewed Results Reviewed: No imaging is available for review. Assessment & Plan Assessment & Plan (1) Intractable back pain: Code(s): M54.9 - Dorsalgia, unspecified Category: Medical (2) Lumbar spondylosis: Code(s): M47.816 - Spondylosis without myelopathy or radiculopathy, lumbar region Category: Medical Plan The lead was removed with the tip intact. Lead insertion site is clean, dry and intact. He reported 90% relief. He will follow up as needed. Scribed for Dr. Chaney by Sylvester Quintana, medical transcriptionist, on 05/18/2024. I, Dr. Chaney, have personally reviewed and agree with the information entered by the scribe. Coding Level of Care Code Est Pt Level 3 (00894) Diagnoses Intractable back pain M54.9 Lumbar spondylosis M47.816
[2024-05-18 11:53] VITALS: BP 169/71; PULSE 61; RESP 14; O2SAT 95; BMI 26.8
== END 2024-05-18 12:02 | disposition home or self-care (01) ==
PROVIDERS: PCP Internal Medicine; Visit Provider Internal Medicine
DX: M54.9 Dorsalgia, unspecified (principal); M47.816 Spondylosis without myelopathy or radiculopathy, lumbar region
CPT/HCPCS: 99213

== ENCOUNTER → 2024-05-18 11:49 | Outpatient (BNVA) | payer OTHER, SELFPAY | PROVIDERS: PCP Internal Medicine; Visit Provider Internal Medicine ==